=== PATIENT | male | born 1950 | race American Indian/Alaskan Native ===

== ENCOUNTER 2018-02-01 12:21 | Emergency (ER) | payer MEDICARE ==
[2018-02-01] MEDS ORDERED: CATAPRES PO ONE (13:40)
--- NOTE | 2018-02-01 13:43 | Emergency Department Report ---
ED Neck Pain/Injury HPI - General Chief Complaint: Neck Pain/Injury Stated Complaint: RIGHT SIDE PAIN Time Seen by Provider: 02/01/18 13:25 Mode of arrival: Ambulatory Limitations: No Limitations - History of Present Illness Initial Comments: Patient is a 67-year-old black male who for the past week his Right Neck Pain Radiating into the Right Arm. Patient States When He Holds His Neck up Completely Straight or Turns His Head to the Right Is Some Increasing Pain and Gets a Shooting Electrical Sensations Sometimes into His Right Arm. Patient States Week Ago He Was Doing Some Work on Some Cabinets at His House and Was Laid on His Right Side for Prolonged Period of Time. Patient States He Thinks This May Have Caused His Pain. Patient States He Has Not Been Taking His Blood Pressure Medicine Because He Didn't Know If the Tylenol Relief He's Been Taking for His Neck Discomfort Would Interact with His Blood Pressure Medicines. Patient Denies Any Chest Pain Shortness of Breath Headache Nausea Vomiting at This Time. - Related Data Previous Rx's Medication Instructions Recorded Last Taken Type Ibuprofen [Motrin] 600 mg PO Q8H PRN #20 tablet 02/01/18 Unknown Rx methOCARBAMOL [Robaxin TAB] 500 mg PO Q6H PRN #15 tablet 02/01/18 Unknown Rx traMADol [Ultram] 50 mg PO Q6HR PRN #12 tablet 02/01/18 Unknown Rx Allergies Allergy/AdvReac Type Severity Reaction Status Date / Time No Known Allergies Allergy Unverified 02/01/18 12:24 ED Review of Systems ROS: Stated complaint: RIGHT SIDE PAIN Other details as noted in HPI Comment: All other systems reviewed and negative ED Past Medical Hx - Past Medical History Previous Medical History?: Yes Hx Hypertension: Yes Hx Diabetes: Yes Additional medical history: High cholesterol - Surgical History Past Surgical History?: No - Social History Smoking Status: Current Every Day Smoker Substance Use Type: Alcohol - Medications Home Medications: Home Medications Medication Instructions Recorded Confirmed Last Taken Type Ibuprofen [Motrin] 600 mg PO Q8H PRN #20 tablet 02/01/18 Unknown Rx methOCARBAMOL [Robaxin TAB] 500 mg PO Q6H PRN #15 tablet 02/01/18 Unknown Rx traMADol [Ultram] 50 mg PO Q6HR PRN #12 tablet 02/01/18 Unknown Rx ED Physical Exam - General Limitations: No Limitations General appearance: alert, in no apparent distress - Head Head exam: Present: atraumatic, normocephalic - Eye Eye exam: Present: normal appearance - ENT ENT exam: Present: mucous membranes moist - Neck Neck exam: Present: normal inspection - Respiratory Respiratory exam: Present: normal lung sounds bilaterally. Absent: respiratory distress - Cardiovascular Cardiovascular Exam: Present: regular rate, normal rhythm. Absent: systolic murmur, diastolic murmur, rubs, gallop - GI/Abdominal GI/Abdominal exam: Present: soft, normal bowel sounds - Rectal Rectal exam: Present: deferred - Extremities Exam Extremities exam: Present: normal inspection - Back Exam Back exam: Present: normal inspection - Neurological Exam Neurological exam: Present: alert, oriented X3 - Psychiatric Psychiatric exam: Present: normal affect, normal mood - Skin Skin exam: Present: warm, dry, intact, normal color. Absent: rash ED Course Vital Signs 02/01/18 12:24 Temperature 98.3 F Pulse Rate 103 H Respiratory 20 Rate Blood Pressure 189/106 O2 Sat by Pulse 99 Oximetry ED Medical Decision Making - Medical Decision Making Patient been urged to continue to take his blood pressure medicines. The patient's symptoms were suggestive of a cervical radiculopathy. Patient will be started on muscle relaxant and pain meds be discharged home. Critical care attestation.: If time is entered above; I have spent that time in minutes in the direct care of this critically ill patient, excluding procedure time. ED Disposition Clinical Impression: Cervical radiculopathy Disposition: DC-01 TO HOME OR SELFCARE Is pt being admited?: No Does the pt Need Aspirin: No Condition: Stable Instructions: Cervical Radiculopathy (ED) Referrals: YEVGENIY PARKS MD [Staff Physician] - 3-5 Days
[2018-02-01 14:01] VITALS: BP 160/106
== END 2018-02-01 14:07 | disposition home or self-care (01) ==
LOC: ED 12:21
DX: M54.12 Radiculopathy, cervical region (principal); I10 Essential (primary) hypertension; E11.9 Type 2 diabetes mellitus without complications; E78.00 Pure hypercholesterolemia, unspecified; F17.200 Nicotine dependence, unspecified, uncomplicated
CPT/HCPCS: 99282